=== PATIENT | male | born 1930 | race Caucasian/White ===

== ENCOUNTER 2019-10-12 17:29 | Inpatient (IN) | payer MEDICARE, OTHER ==
--- NOTE | 2019-10-12 18:23 | EDM.PDOC ---
ED HPI GENERAL MEDICAL PROBLEM - General Chief Complaint: Lower Extremity Injury/Pain Stated Complaint: L) hip/leg pain Time Seen by Provider: 10/12/19 17:30 Source of Information: Reports: Patient, Family History Limitations: Reports: No Limitations - History of Present Illness INITIAL COMMENTS - FREE TEXT/NARRATIVE: Patient to the emergency department via privately owned vehicle with his family. The family advises that he fell on September 08, 2019 at home. It is unclear exactly the mechanism of injury or the surrounding specifics of the fall. The daughter has given a few dates of possible falls after September 07 but she is unclear of those and advising that after the fall initially he was sore but did okay and then over the past 3 weeks he started feeling more worse and then over the past 5 days he is felt more worse so the story surrounding the date and time of the fall and possible subsequent injuries is unclear at this point. She does advise that the patient does live alone however the patient's children that live near him takes turns coming in spending time with him during the day but he is at home alone at night. The patient is very hard of hearing however he does appear to be alert and oriented. The patient does complain of pain in the left hip and the left knee. The patient denies any pain in his back however the daughter is advising that when this happened he initially did have some lower back pain. The patient has been ambulating with a walker up until the last 3 days where he is got to where is more painful and he is not wanting to be up on that extremity at all. It is unclear however it is not suspected that the patient hit his head when he fell. And there appears not to have been any loss of consciousness. The patient has no pain in either upper extremity. He denies any pain in his upper back and denies any pain in his mid back or his lower back at this time. The patient has no pain over the right hip and pelvis area no pain over the right lower extremity with palpation. There is no obvious bruising redness or swelling to the back, bilateral hips and pelvis and lower extremities bilaterally. Distal pulse motor sensory is intact upper lower extremities however there is decreased range of motion of the left hip secondary to pain. The patient does have good sensation all the way down to the toes. The patient does have a history of congestive heart failure and does take Coreg for that condition and that is his only medication. He does have a history of hypertension. No other past medical history that significant. The patient has not had any surgeries. The patient's other complaint is he does have increased bilateral lower extremity edema. There is 1 to 2+ pitting edema in both lower extremities equally. There is no calf tenderness bilaterally. This is not a trauma code. 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: Other (see below) (The patient has not been seen or treated for this fall) Left Hip Pain Score (Numeric/FACES): 10 - Related Data Allergies Allergy/AdvReac Type Severity Reaction Status Date / Time No Known Allergies Allergy Verified 10/12/19 18:01 Home Meds: Home Meds Carvedilol [Coreg] 12.5 mg PO DAILY 10/12/19 [History] Past Medical History Cardiovascular History: Reports: Hypertension, Other (See Below) Other Cardiovascular History: CHF Musculoskeletal History: Reports: Other (See Below) Other Musculoskeletal History: Ankylosis spondonosis Social & Family History - Family History Family Medical History: Noncontributory - Tobacco Use Smoking Status *Q: Never Smoker Second Hand Smoke Exposure: No - Caffeine Use Caffeine Use: Reports: None - Recreational Drug Use Recreational Drug Use: No Review of Systems - Review of Systems Review Of Systems: See Below Constitutional: Reports: No Symptoms. Denies: Chills, Fever, Weakness Eyes: Reports: No Symptoms Ears: Reports: No Symptoms Nose: Reports: No Symptoms Mouth/Throat: Reports: No Symptoms Respiratory: Reports: No Symptoms. Denies: Shortness of Breath, Cough Cardiovascular: Reports: Edema. Denies: Chest Pain, Irregular Heart Rate, Lightheadedness, Palpitations, Syncope GI/Abdominal: Reports: No Symptoms. Denies: Abdominal Pain, Nausea, Vomiting Genitourinary: Reports: No Symptoms Musculoskeletal: Reports: No Symptoms, Joint Pain (left hip). Denies: Neck Pain , Back Pain Skin: Reports: No Symptoms. Denies: Pallor, Bruising, Erythema Neurological: Reports: No Symptoms. Denies: Dizziness, Headache, Numbness, Paresthesia Psychiatric: Reports: No Symptoms ED EXAM, GENERAL - Physical Exam Exam: See Below Exam Limited By: No Limitations General Appearance: Alert, WD/WN, No Apparent Distress Ears: Normal External Exam. No: Hearing Grossly Normal Nose: Normal Inspection Throat/Mouth: Normal Inspection, Normal Lips, Normal Voice, No Airway Compromise Head: Atraumatic, Normocephalic Neck: Normal Inspection, Supple, Non-Tender, Full Range of Motion Respiratory/Chest: No Respiratory Distress, Lungs Clear, Normal Breath Sounds Cardiovascular: Normal Peripheral Pulses, Regular Rate, Rhythm, No Murmur Peripheral Pulses: 2+: Radial (L), Radial (R), Posterior Tibial (L), Posterior Tibial (R) GI/Abdominal: Normal Bowel Sounds, Soft, Non-Tender, No Distention Back Exam: Normal Inspection, Full Range of Motion Extremities: Normal Inspection, Normal Capillary Refill, Other (as above) Neurological: Alert, Oriented (to person not place, is hard of hearing, has a hx of dementia and his dgtr advised this is his normal mental status ) Psychiatric: Normal Affect, Normal Mood Skin Exam: Warm, Dry, Intact, Normal Color EKG INTERPRETATION EKG Date: 10/12/19 Time: 18:24 Rhythm: NSR [place]: Normal P-Wave: Present QRS: Normal ST-T: Normal QT: Normal EKG Interpretation Comments: The patient's twelve-lead EKG shows an underlying sinus rhythm with a ventricular rate of 77 there is a first-degree AV block as well as some nonspecific ST changes however there does not appear to be any acute injury or ischemia noted. There is normal R wave progression. Course - Vital Signs Text/Narrative:: 1840 the patient has been evaluated in the emergency department x-ray AP of the pelvis is essentially negative for any acute obvious fracture however there is significant degenerative changes. AP and lateral left knee also shows degenerative changes however no obvious fracture. CT was elected as the patient plain x-rays are negative and complains of severe left hip pain to rule out occult fracture. CT has been completed and results are pending at this point. Chest x-ray is been obtained and shows some slight blurring in the left lower lobe however no obvious pneumonia or congestive changes at this point. The radiology reading is pending. The twelve-lead EKG shows an underlying sinus rhythm with a ventricular rate of 77 there is a first-degree AV block however there is no obvious injury or ischemia noted on the twelve-lead EKG. The patient CBC is stable, general chemistries are also stable as there is some obvious renal insufficiency which is chronic. Urinalysis is pending at this point. Once all the rest of the data is been collected a disposition will be made. [address] came back and does not show any acute fracture/dislocation. See the radiologist dictation for complete details of the CT report. The patient will be admitted for gait failure for physical therapy to evaluate and gait strengthening as well as continued left hip pain and urinary tract infection. The patient will be placed in observation. Last Recorded V/S: Last Vital Signs Temp 35.6 C L 10/12/19 21:01 Pulse 76 10/12/19 21:01 Resp 20 10/12/19 21:01 BP 146/71 H 10/12/19 21:01 Pulse Ox 93 L 10/12/19 21:01 - Orders/Labs/Meds Orders: Active Orders 24 hr Category Date Time Status Patient Status Manage Transfer [TRANSFER] Routine ADT 10/12/19 21:49 Active Patient Status [ADT] Routine ADT 10/12/19 21:54 Active Ambulate [RC] ASDIRECTED Care 10/12/19 21:55 Active Height and Weight [RC] UPON Care 10/12/19 21:55 Active Intake and Output [RC] QSHIFT Care 10/12/19 21:58 Active Oxygen Therapy [RC] PRN Care 10/12/19 21:54 Active Oxygen Therapy [RC] PRN Care 10/12/19 21:56 Active Peripheral IV Care [RC] . DIRECTED Care 10/12/19 19:12 Active Up With Assistance [RC] ASDIRECTED Care 10/12/19 21:55 Active VTE/DVT Education [RC] PER UNIT ROUTINE Care 10/12/19 21:54 Active VTE/DVT Education [RC] PER UNIT ROUTINE Care 10/12/19 21:56 Active Vital Signs [RC] Q4H Care 10/12/19 21:56 Active Vital Signs [RC] Q8H Care 10/12/19 21:54 Active PT Evaluation and Treatment [CONS] Routine Cons 10/12/19 21:55 Active 2 Gram Sodium Diet [DIET] Diet 10/13/19 Breakfast Active Chest 1V Frontal [CR] Stat Exams 10/12/19 17:39 Taken Knee 1V or 2V Lt [CR] Stat Exams 10/12/19 17:39 Taken Pelvis 1V or 2V [CR] Stat Exams 10/12/19 17:39 Taken Pelvis wo Cont [CT] Stat Exams 10/12/19 18:14 Taken CULTURE URINE [RM] Routine Lab 10/12/19 18:59 Received Acetaminophen/HYDROcodone [[place] 325-5 MG] Med 10/12/19 21:55 Active 1 tab PO Q4H PRN Enoxaparin [Lovenox] Med 10/12/19 22:00 Active 40 mg SUBCUT Q24H Sodium Chloride 0.9% [Saline Flush] Med 10/12/19 19:12 Active 10 ml FLUSH ASDIRECTED PRN Sodium Chloride 0.9% [Saline Flush] Med 10/12/19 21:55 Active 10 ml FLUSH ASDIRECTED PRN carvediloL [Coreg] Med 10/13/19 08:00 Active 12.5 mg PO DAILY cefTRIAXone [Rocephin] Med 10/12/19 22:15 Active 1 gm IVPUSH Q24H Peripheral IV Insertion Adult [OM.PC] Routine Oth 10/12/19 19:12 Ordered Saline Lock Insert [OM.PC] Routine Oth 10/12/19 21:55 Ordered Resuscitation Status Routine Resus Stat 10/12/19 21:54 Ordered Medication Orders Hydrocodone Bitart/Acetaminophen ([place] 325-5 Mg) 1 tab PO Q4H PRN PRN Reason: Pain (moderate 4-6) Carvedilol (Coreg) 12.5 mg PO DAILY [facility] Ceftriaxone Sodium (Rocephin) 1 gm IVPUSH Q24H [facility] Enoxaparin Sodium (Lovenox) 40 mg SUBCUT Q24H [facility] Sodium Chloride (Saline Flush) 10 ml FLUSH ASDIRECTED PRN PRN Reason: Keep Vein Open Sodium Chloride (Saline Flush) 10 ml FLUSH ASDIRECTED PRN PRN Reason: Keep Vein Open Labs: Laboratory Tests 10/12/19 10/12/19 10/12/19 Range/Units 17:40 17:40 17:40 WBC 8.2 (5.0-10.0) 10^3/uL RBC 3.82 L (4.50-6.00) 10^6/uL Hgb 10.8 L (14.0-18.0) g/dL Hct 33.4 L (40.0-54.0) % MCV 87.4 (82.0-94.0) fL MCH 28.3 (27.0-32.0) pg MCHC 32.3 L (33.0-38.0) g/dL RDW Coeff of [place] 14.0 (11.0-15.0) % Plt Count 392 (150-400) 10^3/uL Neut % (Auto) 62.9 (35-85) % Lymph % (Auto) 16.5 (10-55) % [place] % (Auto) 9.9 (0-16) % Eos % (Auto) 10.1 H (0-5) % Baso % (Auto) 0.6 (0-3) % Neut # (Auto) 5.16 (1.80-7.00) 10^3/uL Lymph # (Auto) 1.35 (1.00-4.80) 10^3/uL [place] # (Auto) 0.81 H (0.00-0.80) 10^3/uL Eos # (Auto) 0.83 H (0.00-0.45) 10^3/uL Baso # (Auto) 0.05 10^3/uL Sodium 138 (136-145) mEq/L Potassium 4.2 (3.5-5.0) mEq/L Chloride 103 (98-106) mEq/L Carbon Dioxide 24 (21-32) mmol/L BUN 37 H (7-18) mg/dL Creatinine 1.7 H (0.7-1.3) mg/dL Est Cr Clr Drug Dosing 26.13 mL/min Estimated GFR (MDRD) 38 L (>=60) mL/min Glucose 130 H (75-99) mg/dL Calcium 8.4 (8.4-10.1) mg/dL Magnesium 1.9 (1.8-2.4) mg/dL Total Bilirubin 0.4 (0.0-1.0) mg/dL AST 12 L (15-37) U/L ALT 10 L (12-78) U/L Alkaline Phosphatase 169 H (46-116) U/L Troponin I 0.060 (0.00-0.06) ng/mL Total Protein 6.8 (6.4-8.2) g/dL Albumin 3.0 L (3.4-5.0) g/dL Urine Color Light yellow (YELLOW) Urine Appearance Cloudy (CLEAR) Urine pH 5.0 (4.5-8.0) Ur Specific [place] 1.025 H (1.003-1.020) Urine Protein 30 H (NEGATIVE) mg/dL Urine Glucose (UA) Negative (NEGATIVE) mg/dL Urine Ketones Negative (NEGATIVE) mg/dL Urine Occult Blood Moderate H (NEGATIVE) Urine Nitrite Positive H (NEGATIVE) Urine Bilirubin Negative (NEGATIVE) Urine Urobilinogen 0.2 (0.2-1.0) EU/dL Ur Leukocyte Esterase Small H (NEGATIVE) Urine RBC 5-10 H (0-5) /HPF Urine WBC 40-50 H (0-5) /HPF Ur Squamous Epith Cells Few H (NOT SEEN) /HPF Amorphous Sediment Moderate H (NOT SEEN) /HPF Urine Bacteria Moderate H (NOT SEEN) /HPF Urinalysis Comment Meds: Medications Generic Name Dose Route Start Last Admin Trade Name Freq PRN Reason Stop Dose Admin Hydrocodone Bitart/Acetaminophen 1 tab 10/12/19 21:55 [place] 325-5 Mg PO Q4H PRN Pain (moderate 4-6) Carvedilol 12.5 mg 10/13/19 08:00 Coreg PO DAILY [facility] Ceftriaxone Sodium 1 gm 10/12/19 22:15 Rocephin IVPUSH Q24H [facility] Enoxaparin Sodium 40 mg 10/12/19 22:00 Lovenox SUBCUT Q24H [facility] Sodium Chloride 10 ml 10/12/19 19:12 Saline Flush FLUSH ASDIRECTED PRN Keep Vein Open Sodium Chloride 10 ml 10/12/19 21:55 Saline Flush FLUSH ASDIRECTED PRN Keep Vein Open Discontinued Medications Generic Name Dose Route Start Last Admin Trade Name Freq PRN Reason Stop Dose Admin Ceftriaxone Sodium 2 gm 10/12/19 19:12 10/12/19 20:55 Rocephin IVPUSH 10/12/19 19:13 2 gm ONETIME ONE Administration Departure - Departure Time of Disposition: 21:20 Disposition: Refer to Observation Condition: Good Clinical Impression: Urinary tract infection, Left hip pain, Weakness of lower extremity Clinical Impression: (Ruled Out): Failure to gain weight in adult - Discharge Information *PRESCRIPTION DRUG MONITORING PROGRAM REVIEWED*: Not Applicable *COPY OF PRESCRIPTION DRUG MONITORING REPORT IN PATIENT LIZZY: Not Applicable Forms: ED Department Discharge Sepsis Event Note - Evaluation Sepsis Screening Result: No Definite Risk - Focused Exam Vital Signs: Vital Signs Temp Pulse Resp BP Pulse Ox 10/12/19 21:01 35.6 C L 76 20 146/71 H 93 L 10/12/19 17:33 36.5 C 85 20 183/98 H 97 Date Exam was Performed: 10/12/19 Time Exam was Performed: 22:04 - Problem List & Annotations (1) Left hip pain SNOMED Code(s): 10016059 Code(s): M25.552 - PAIN IN LEFT HIP Status: Acute Priority: Medium (2) Urinary tract infection SNOMED Code(s): 44633342 Code(s): N39.0 - URINARY TRACT INFECTION, SITE NOT SPECIFIED Status: Acute Priority: Medium Qualifiers: Urinary tract infection type: site unspecified (3) Weakness of lower extremity SNOMED Code(s): 087464799 Code(s): R29.898 - OTH SYMPTOMS AND SIGNS INVOLVING THE MUSCULOSKELETAL SYSTEM Status: Acute Priority: Medium Qualifiers: Laterality: left Qualified Code(s): R29.898 - Other symptoms and signs involving the musculoskeletal system - Problem List Review Problem List Initiated/Reviewed/Updated: Yes - My Orders Last 24 Hours: My Active Orders 10/12/19 17:39 Chest 1V Frontal [CR] Stat Knee 1V or 2V Lt [CR] Stat Pelvis 1V or 2V [CR] Stat 10/12/19 18:14 Pelvis wo Cont [CT] Stat 10/12/19 18:59 CULTURE URINE [RM] Routine 10/12/19 19:12 Peripheral IV Care [RC] . DIRECTED Sodium Chloride 0.9% [Saline Flush] 10 ml FLUSH ASDIRECTED PRN Peripheral IV Insertion Adult [OM.PC] Routine 10/12/19 21:49 Patient Status Manage Transfer [TRANSFER] Routine 10/12/19 21:54 Patient Status [ADT] Routine Oxygen Therapy [RC] PRN VTE/DVT Education [RC] PER UNIT ROUTINE Vital Signs [RC] Q8H Resuscitation Status Routine 10/12/19 21:55 Ambulate [RC] ASDIRECTED Height and Weight [RC] UPON Up With Assistance [RC] ASDIRECTED PT Evaluation and Treatment [CONS] Routine Acetaminophen/HYDROcodone [[place] 325-5 MG] 1 tab PO Q4H PRN Sodium Chloride 0.9% [Saline Flush] 10 ml FLUSH ASDIRECTED PRN Saline Lock Insert [OM.PC] Routine 10/12/19 21:56 Oxygen Therapy [RC] PRN VTE/DVT Education [RC] PER UNIT ROUTINE Vital Signs [RC] Q4H 10/12/19 21:58 Intake and Output [RC] QSHIFT 10/12/19 22:00 Enoxaparin [Lovenox] 40 mg SUBCUT Q24H 10/12/19 22:15 cefTRIAXone [Rocephin] 1 gm IVPUSH Q24H 10/13/19 08:00 carvediloL [Coreg] 12.5 mg PO DAILY 10/13/19 Breakfast 2 Gram Sodium Diet [DIET] - Assessment/Plan Admission H&P: Please use this note as an admission H&P Last 24 Hours: My Active Orders 10/12/19 17:39 Chest 1V Frontal [CR] Stat Knee 1V or 2V Lt [CR] Stat Pelvis 1V or 2V [CR] Stat 10/12/19 18:14 Pelvis wo Cont [CT] Stat 10/12/19 18:59 CULTURE URINE [RM] Routine 10/12/19 19:12 Peripheral IV Care [RC] . DIRECTED Sodium Chloride 0.9% [Saline Flush] 10 ml FLUSH ASDIRECTED PRN Peripheral IV Insertion Adult [OM.PC] Routine 10/12/19 21:49 Patient Status Manage Transfer [TRANSFER] Routine 10/12/19 21:54 Patient Status [ADT] Routine Oxygen Therapy [RC] PRN VTE/DVT Education [RC] PER UNIT ROUTINE Vital Signs [RC] Q8H Resuscitation Status Routine 10/12/19 21:55 Ambulate [RC] ASDIRECTED Height and Weight [RC] UPON Up With Assistance [RC] ASDIRECTED PT Evaluation and Treatment [CONS] Routine Acetaminophen/HYDROcodone [[place] 325-5 MG] 1 tab PO Q4H PRN Sodium Chloride 0.9% [Saline Flush] 10 ml FLUSH ASDIRECTED PRN Saline Lock Insert [OM.PC] Routine 10/12/19 21:56 Oxygen Therapy [RC] PRN VTE/DVT Education [RC] PER UNIT ROUTINE Vital Signs [RC] Q4H 10/12/19 21:58 Intake and Output [RC] QSHIFT 10/12/19 22:00 Enoxaparin [Lovenox] 40 mg SUBCUT Q24H 10/12/19 22:15 cefTRIAXone [Rocephin] 1 gm IVPUSH Q24H 10/13/19 08:00 carvediloL [Coreg] 12.5 mg PO DAILY 10/13/19 Breakfast 2 Gram Sodium Diet [DIET] Plan: As above
[2019-10-12] MEDS ORDERED: Sodium Chloride 0.9% 10 ML Syringe FLUSH PRN ×2 (19:12→21:55)
[2019-10-12] MEDS ORDERED: cefTRIAXone 2 GM Vial IVPUSH ONE (19:12)
[2019-10-12] MEDS ORDERED: Acetaminophen/HYDROcodone 325-5 MG Tab PO PRN (21:55)
[2019-10-12] MEDS: cefTRIAXone 1 GM Vial IVPUSH SCH (23:07)
[2019-10-12] MEDS: Enoxaparin 40 MG/0.4 ML Syringe SUBCUT SCH (23:50)
[2019-10-13] MEDS ORDERED: Carvedilol 12.5 MG Tab PO SCH (08:00)
--- NOTE | 2019-10-13 09:07 | PCM.PN ---
- General Info Date of Service: 10/13/19 Admission Dx/Problem (Free Text): see H/P - Review of Systems General: Reports: Weakness. Denies: Fever HEENT: Reports: No Symptoms Pulmonary: Reports: No Symptoms. Denies: Shortness of Breath, Cough Cardiovascular: Reports: No Symptoms. Denies: Chest Pain Gastrointestinal: Reports: No Symptoms. Denies: Abdominal Pain, Nausea, Vomiting Musculoskeletal: Reports: No Symptoms. Denies: Neck Pain, Back Pain Skin: Reports: No Symptoms. Denies: Pallor, Bruising Neurological: Reports: No Symptoms, Confusion (hx dementia, normal for pt) Psychiatric: Reports: No Symptoms - Patient Data Vitals - Most Recent: Last Vital Signs Temp 36.2 C 10/13/19 08:00 Pulse 89 10/13/19 08:00 Resp 18 10/13/19 08:00 BP 176/86 H 10/13/19 08:00 Pulse Ox 96 10/13/19 08:00 Weight - Most Recent: 74.843 kg I&O - Last 24 Hours: Intake & Output 10/12/19 10/13/19 10/13/19 22:59 06:59 14:59 Intake Total 100 Output Total 275 Balance -175 Lab Results Last 24 Hours: Laboratory Results - last 24 hr 10/12/19 10/12/19 10/12/19 Range/Units 17:40 17:40 17:40 WBC 8.2 (5.0-10.0) 10^3/uL RBC 3.82 L (4.50-6.00) 10^6/uL Hgb 10.8 L (14.0-18.0) g/dL Hct 33.4 L (40.0-54.0) % MCV 87.4 (82.0-94.0) fL MCH 28.3 (27.0-32.0) pg MCHC 32.3 L (33.0-38.0) g/dL RDW Coeff of [place] 14.0 (11.0-15.0) % Plt Count 392 (150-400) 10^3/uL Neut % (Auto) 62.9 (35-85) % Lymph % (Auto) 16.5 (10-55) % [place] % (Auto) 9.9 (0-16) % Eos % (Auto) 10.1 H (0-5) % Baso % (Auto) 0.6 (0-3) % Neut # (Auto) 5.16 (1.80-7.00) 10^3/uL Lymph # (Auto) 1.35 (1.00-4.80) 10^3/uL [place] # (Auto) 0.81 H (0.00-0.80) 10^3/uL Eos # (Auto) 0.83 H (0.00-0.45) 10^3/uL Baso # (Auto) 0.05 10^3/uL Sodium 138 (136-145) mEq/L Potassium 4.2 (3.5-5.0) mEq/L Chloride 103 (98-106) mEq/L Carbon Dioxide 24 (21-32) mmol/L BUN 37 H (7-18) mg/dL Creatinine 1.7 H (0.7-1.3) mg/dL Est Cr Clr Drug Dosing 26.13 mL/min Estimated GFR (MDRD) 38 L (>=60) mL/min Glucose 130 H (75-99) mg/dL Calcium 8.4 (8.4-10.1) mg/dL Magnesium 1.9 (1.8-2.4) mg/dL Total Bilirubin 0.4 (0.0-1.0) mg/dL AST 12 L (15-37) U/L ALT 10 L (12-78) U/L Alkaline Phosphatase 169 H (46-116) U/L Troponin I 0.060 (0.00-0.06) ng/mL Total Protein 6.8 (6.4-8.2) g/dL Albumin 3.0 L (3.4-5.0) g/dL Urine Color Light yellow (YELLOW) Urine Appearance Cloudy (CLEAR) Urine pH 5.0 (4.5-8.0) Ur Specific [place] 1.025 H (1.003-1.020) Urine Protein 30 H (NEGATIVE) mg/dL Urine Glucose (UA) Negative (NEGATIVE) mg/dL Urine Ketones Negative (NEGATIVE) mg/dL Urine Occult Blood Moderate H (NEGATIVE) Urine Nitrite Positive H (NEGATIVE) Urine Bilirubin Negative (NEGATIVE) Urine Urobilinogen 0.2 (0.2-1.0) EU/dL Ur Leukocyte Esterase Small H (NEGATIVE) Urine RBC 5-10 H (0-5) /HPF Urine WBC 40-50 H (0-5) /HPF Ur Squamous Epith Cells Few H (NOT SEEN) /HPF Amorphous Sediment Moderate H (NOT SEEN) /HPF Urine Bacteria Moderate H (NOT SEEN) /HPF Urinalysis Comment Med Orders - Current: Current Medications Hydrocodone Bitart/Acetaminophen ([place] 325-5 Mg) 1 tab PO Q4H PRN PRN Reason: Pain (moderate 4-6) Carvedilol (Coreg) 12.5 mg PO DAILY [facility] Ceftriaxone Sodium (Rocephin) 1 gm IVPUSH Q24H [facility] Last Admin: 10/12/19 23:07 Dose: Not Given Enoxaparin Sodium (Lovenox) 40 mg SUBCUT Q24H [facility] Last Admin: 10/12/19 23:50 Dose: 40 mg Sodium Chloride (Saline Flush) 10 ml FLUSH ASDIRECTED PRN PRN Reason: Keep Vein Open Sodium Chloride (Saline Flush) 10 ml FLUSH ASDIRECTED PRN PRN Reason: Keep Vein Open Discontinued Medications Ceftriaxone Sodium (Rocephin) 2 gm IVPUSH ONETIME ONE Stop: 10/12/19 19:13 Last Admin: 10/12/19 20:55 Dose: 2 gm - Exam Quality Assessment: No: Supplemental Oxygen General: Alert, Oriented (to person, not time or place), Cooperative, No Acute Distress Neck: Supple, Trachea Midline Lungs: Clear to Auscultation, Normal Respiratory Effort Cardiovascular: Regular Rate, Regular Rhythm GI/Abdominal Exam: Normal Bowel Sounds, Soft, Non-Tender Back Exam: Normal Inspection, Full Range of Motion Extremities: Normal Inspection, No Pedal Edema, Normal Capillary Refill. No: Non-Tender (left hip pain) Peripheral Pulses: 2+: Radial (L), Radial (R), Posterior Tibial (L), Posterior Tibial (R) Skin: Warm, Dry, Intact Sepsis Event Note - Evaluation Sepsis Screening Result: No Definite Risk - Focused Exam Vital Signs: Vital Signs Temp Pulse Resp BP Pulse Ox 10/13/19 08:00 36.2 C 89 18 176/86 H 96 10/12/19 23:52 35.5 C L 71 18 131/66 95 10/12/19 21:01 35.6 C L 76 20 146/71 H 93 L Date Exam was Performed: 10/13/19 Time Exam was Performed: 08:56 - Problem List & Annotations (1) Left hip pain SNOMED Code(s): 41825667 Code(s): M25.552 - PAIN IN LEFT HIP Status: Acute Priority: Medium Current Visit: No (2) Urinary tract infection SNOMED Code(s): 31353248 Code(s): N39.0 - URINARY TRACT INFECTION, SITE NOT SPECIFIED Status: Acute Priority: Medium Current Visit: No Qualifiers: Urinary tract infection type: site unspecified (3) Weakness of lower extremity SNOMED Code(s): 153615166 Code(s): R29.898 - OTH SYMPTOMS AND SIGNS INVOLVING THE MUSCULOSKELETAL SYSTEM Status: Acute Priority: Medium Current Visit: No Qualifiers: Laterality: left Qualified Code(s): R29.898 - Other symptoms and signs involving the musculoskeletal system - Problem List Review Problem List Initiated/Reviewed/Updated: Yes - My Orders Last 24 Hours: My Active Orders 10/12/19 17:39 Chest 1V Frontal [CR] Stat Knee 1V or 2V Lt [CR] Stat Pelvis 1V or 2V [CR] Stat 10/12/19 18:14 Pelvis wo Cont [CT] Stat 10/12/19 18:59 CULTURE URINE [RM] Routine 10/12/19 19:12 Peripheral IV Care [RC] . DIRECTED Sodium Chloride 0.9% [Saline Flush] 10 ml FLUSH ASDIRECTED PRN 10/12/19 21:54 Patient Status [ADT] Routine Oxygen Therapy [RC] .PRN VTE/DVT Education [RC] PER UNIT ROUTINE Vital Signs [RC] 0000,[id number],1600 Resuscitation Status Routine 10/12/19 21:55 Ambulate [RC] ASDIRECTED Height and Weight [RC] .PRN Up With Assistance [RC] ASDIRECTED PT Evaluation and Treatment [CONS] Routine Acetaminophen/HYDROcodone [[place] 325-5 MG] 1 tab PO Q4H PRN Sodium Chloride 0.9% [Saline Flush] 10 ml FLUSH ASDIRECTED PRN Saline Lock Insert [OM.PC] Routine 10/12/19 21:56 Vital Signs [RC] Q4H 10/12/19 21:58 Intake and Output [RC] 0600,1800 10/12/19 22:00 Enoxaparin [Lovenox] 40 mg SUBCUT Q24H 04/10/20 22:15 cefTRIAXone [Rocephin] 1 gm IVPUSH Q24H 10/13/19 08:00 carvediloL [Coreg] 12.5 mg PO DAILY 10/13/19 Breakfast 2 Gram Sodium Diet [DIET] - Plan Plan:: pt has decrease in pain, does not want to stand on his left leg still, will continue current treatment plan and work with ROM of the lower ext and try ambulation, will continue IV antibx for his UTI, changes to tx plan will be as needed
[2019-10-13] MEDS: cefTRIAXone 1 GM Vial IVPUSH SCH (22:00)
[2019-10-13] MEDS: Enoxaparin 40 MG/0.4 ML Syringe SUBCUT SCH (22:02)
[2019-10-14] MEDS ORDERED: Furosemide 40 MG/4 ML VIAL IVPUSH ONE (06:57)
--- NOTE | 2019-10-14 07:13 | PCM.PN ---
- General Info Date of Service: 10/14/19 Admission Dx/Problem (Free Text): see H/P - Review of Systems General: Reports: Weakness. Denies: Fever HEENT: Reports: No Symptoms Pulmonary: Reports: No Symptoms. Denies: Shortness of Breath, Cough Cardiovascular: Reports: No Symptoms, Edema. Denies: Chest Pain Gastrointestinal: Denies: Abdominal Pain, Diarrhea, Nausea Musculoskeletal: Reports: No Symptoms, Joint Pain (still c/o left hip pain). Denies: Neck Pain Skin: Reports: No Symptoms. Denies: Bruising, Rash Neurological: Reports: Confusion, Weakness, Gait Disturbance. Denies: Headache , Numbness, Tingling Psychiatric: Reports: No Symptoms - Patient Data Vitals - Most Recent: Last Vital Signs Temp 36.7 C 10/13/19 23:09 Pulse 82 10/13/19 23:09 Resp 20 10/13/19 23:09 BP 157/75 H 10/13/19 23:09 Pulse Ox 93 L 10/13/19 23:09 Weight - Most Recent: 74.843 kg I&O - Last 24 Hours: Intake & Output 10/13/19 10/13/19 10/14/19 14:59 22:59 06:59 Intake Total 950 125 Output Total 950 275 Balance 0 -150 Kailash Results Last 24 Hours: Microbiology 10/12/19 18:59 Urine Culture - Preliminary Urine, Catheterized Gram Positive Cocci Med Orders - Current: Current Medications Hydrocodone Bitart/Acetaminophen ([place] 325-5 Mg) 1 tab PO Q4H PRN PRN Reason: Pain (moderate 4-6) Carvedilol (Coreg) 0 mg PO DAILY [facility] Ceftriaxone Sodium (Rocephin) 1 gm IVPUSH Q24H [facility] Last Admin: 10/13/19 22:00 Dose: 1 gm Enoxaparin Sodium (Lovenox) 40 mg SUBCUT Q24H [facility] Last Admin: 10/13/19 22:02 Dose: 40 mg Furosemide (Lasix) 40 mg IVPUSH ONETIME ONE Stop: 10/14/19 06:58 Sodium Chloride (Saline Flush) 10 ml FLUSH ASDIRECTED PRN PRN Reason: Keep Vein Open Sodium Chloride (Saline Flush) 10 ml FLUSH ASDIRECTED PRN PRN Reason: Keep Vein Open Discontinued Medications Carvedilol (Coreg) 12.5 mg PO DAILY [facility] Last Admin: 10/13/19 11:55 Dose: 12.5 mg Ceftriaxone Sodium (Rocephin) 2 gm IVPUSH ONETIME ONE Stop: 10/12/19 19:13 Last Admin: 10/12/19 20:55 Dose: 2 gm - Exam General: Alert, Cooperative. No: Oriented (confused to time and place) Neck: Supple Lungs: Clear to Auscultation, Normal Respiratory Effort Cardiovascular: Regular Rate, Regular Rhythm GI/Abdominal Exam: Soft, Non-Tender Back Exam: Normal Inspection, Full Range of Motion Extremities: Normal Inspection, Normal Capillary Refill. No: Non-Tender (pain in left hip), Redness Peripheral Pulses: 2+: Radial (L), Radial (R), Posterior Tibial (L), Posterior Tibial (R) Skin: Warm, Dry, Intact Neurological: No New Focal Deficit Psy/Mental Status: Alert, Normal Affect, Normal Mood Sepsis Event Note - Evaluation Sepsis Screening Result: No Definite Risk - Focused Exam Vital Signs: Vital Signs Temp Pulse Resp BP Pulse Ox 10/13/19 23:09 36.7 C 82 20 157/75 H 93 L Date Exam was Performed: 10/14/19 Time Exam was Performed: 06:58 - Problem List & Annotations (1) Left hip pain SNOMED Code(s): 35337190 Code(s): M25.552 - PAIN IN LEFT HIP Status: Acute Priority: Medium Current Visit: No (2) Urinary tract infection SNOMED Code(s): 36690843 Code(s): N39.0 - URINARY TRACT INFECTION, SITE NOT SPECIFIED Status: Acute Priority: Medium Current Visit: No Qualifiers: Urinary tract infection type: site unspecified (3) Weakness of lower extremity SNOMED Code(s): 270069602 Code(s): R29.898 - OTH SYMPTOMS AND SIGNS INVOLVING THE MUSCULOSKELETAL SYSTEM Status: Acute Priority: Medium Current Visit: No Qualifiers: Laterality: left Qualified Code(s): R29.898 - Other symptoms and signs involving the musculoskeletal system - Problem List Review Problem List Initiated/Reviewed/Updated: Yes - My Orders Last 24 Hours: My Active Orders 10/13/19 Breakfast 2 Gram Sodium Diet [DIET] 10/14/19 06:57 Furosemide [Lasix] 40 mg IVPUSH ONETIME ONE 10/14/19 08:00 carvediloL [Coreg] 0 mg PO DAILY - Plan Plan:: pt has decrease in pain, does not want to stand on his left leg still, will continue current treatment plan and work with ROM of the lower ext and try ambulation, will continue IV antibx for his UTI, changes to tx plan will be as needed 10/14/2019 0700 pt's edema did appear to be improved yesterday, is worse today, no cp or sob, will give one dose of IV lasix, urine cx is not significant, the pt had c/o some nausea as well, has been having a BM every day, no black or tarry stools, no blood in stools, no vomiting, will repeat labs in am and have pt assess his gait and strength for further tx from that stand point and will consult case management for discharge planning for possible help in the home as he lives alone and family does help out during the day but is alone at night. the opt still c/o left hip pain.
[2019-10-14] MEDS: Carvedilol 12.5 MG Tab **OWN MED PO SCH (08:01)
[2019-10-14] MEDS: cefTRIAXone 1 GM Vial IVPUSH SCH (21:31)
[2019-10-14] MEDS: Enoxaparin 40 MG/0.4 ML Syringe SUBCUT SCH (21:31)
[2019-10-15] MEDS: Carvedilol 12.5 MG Tab **OWN MED PO SCH (07:32)
[2019-10-15] MEDS: Carvedilol 6.25 MG Tab PO SCH (09:24)
--- NOTE | 2019-10-15 09:28 | PN ---
DATE: S: Mr. Conklin was admitted by [facility] when over the weekend for a fall in his garage a few steps. He had negative imaging for any fractures of his pelvis, hips, knee, or chest. He was admitted for observation for strengthening. They thought he may have had a UTI. Final culture I believe is still pending. On admit, his lab work was reviewed and appears stable. Urine was positive and the patient feels better since admission. He has not been up and ambulating on a whole lot as of yet. He lives at home alone in his own [place], so he is at-risk male given his age and comorbidities. O: VITAL SIGNS: Other than some borderline blood pressures have been fine. GENERAL: He is pleasant and cooperative, sitting in bed. HEENT: Grossly benign. NECK: His neck veins are nondistended. LUNGS: Clear. CARDIAC: Tones are regular. ABDOMEN: Nontender. EXTREMITIES: No peripheral edema seen. ASSESSMENT: 1. FALL. 2. WEAKNESS. 3. URINARY TRACT INFECTION. P: We will have PT work with him for the next day or two. He can go to acute due to his acute urinary tract infection, need for IV antibiotics, and strengthening at this point. ROHINI/WILLIAM /[id number]
[2019-10-15] MEDS: Tamsulosin 0.4 MG Cap.ER PO SCH (20:38)
[2019-10-15] MEDS: cefTRIAXone 1 GM Vial IVPUSH SCH (23:14)
[2019-10-15] MEDS: Enoxaparin 40 MG/0.4 ML Syringe SUBCUT SCH (23:15)
[2019-10-16] MEDS: Carvedilol 6.25 MG Tab PO SCH (07:36)
[2019-10-16] MEDS: amLODIPine 2.5 MG Tab PO SCH (10:12)
--- NOTE | 2019-10-16 11:01 | PN ---
DATE: S: Mr. Conklin continues to do better. He has gotten much stronger with the help of physical therapy. His vitals have remained stable, and he has been afebrile. He is hypertensive with his systolics running anywhere from the 140s to 160s. Saturating fine on room air. He denies any complaints of pain. I did look at his urine micro, and it shows Staphylococcus epidermidis. Given his UA on admit and his presentation consistent with UTI, and the fact that this was a questionable specimen, I am going to keep him on IV Rocephin for now until discharge. O: GENERAL: On exam, he is very pleasant, cooperative, in no distress today. HEENT: Grossly benign. NECK: His neck is supple. LUNGS: Clear. CARDIAC: Tones appear regular. ABDOMEN: Soft. EXTREMITIES: Without edema. ASSESSMENT: 1. FALL WITH BACK, HIP, AND LEG CONTUSIONS. 2. WEAKNESS, IMPROVING. 3. QUESTIONABLE URINARY TRACT INFECTION. P: He will continue with physical therapy. Clinically, he looks much better, and we are waiting on care providers at his home via family members to allow for him to safely be discharged as he is an at-risk male. One of his daughters has been contacted, and they are planning for him to go to a [place] [facility] in the near-future. Until that time, I think he needs to be here. His urine culture shows Staphylococcus epidermidis and likely does not need treatment. Given his urine which was quite positive, including nitrite positive, I am going to leave him on Rocephin during his stay. ROHINI/WILLIAM /[id number]
--- NOTE | 2019-10-16 12:59 | PN ---
DATE: 10/16/2019 ADDENDUM: Mr. Conklin's blood pressures have been running slightly elevated. I am going to put him on a low dose of Norvasc, and we will titrate that. During his stay this week, he was having some issues with urinary frequency and dribbling. We did start him on Flomax as well yesterday. ROHINI/WILLIAM /[id number]
[2019-10-16] MEDS: Tamsulosin 0.4 MG Cap.ER PO SCH (19:40)
[2019-10-16] MEDS: Enoxaparin 40 MG/0.4 ML Syringe SUBCUT SCH (22:25)
[2019-10-16] MEDS: cefTRIAXone 1 GM Vial IVPUSH SCH (22:26)
[2019-10-17] MEDS: Carvedilol 6.25 MG Tab PO SCH (07:52)
[2019-10-17] MEDS: amLODIPine 2.5 MG Tab PO SCH ×2 (07:52→10:48)
--- NOTE | 2019-10-17 11:07 | PN ---
DATE: S: Mr. Conklin continues to improve. PT working with him and noticing improvement in strength and walking ability. He has remained afebrile. Blood pressures continue to run high. We did start a low-dose Norvasc yesterday and I will increase that to 5 mg from 2.5. I also started him on Flomax for his prostatism. O: GENERAL: He is pleasant, cooperative, and in no distress today. HEENT: Benign. NECK: Supple. Veins are flat. LUNGS: Sounds are slightly diminished, maybe some fine basilar crackles. CARDIAC: Tones are regular. ABDOMEN: Soft. EXTREMITIES: He has no peripheral edema. ASSESSMENT: 1. FALL WITH MULTIPLE CONTUSIONS. 2. WEAKNESS, IMPROVING. 3. BPH. 4. HYPERTENSION. 5. URINARY TRACT INFECTION. P: We will increase Norvasc to 5. Continue with PT. Plan I believe is for him to go home on Tuesday. We will titrate his blood pressures in the meantime. ROHINI/WILLIAM /[id number]
[2019-10-17] MEDS: Tamsulosin 0.4 MG Cap.ER PO SCH (19:14)
[2019-10-17] MEDS: Enoxaparin 40 MG/0.4 ML Syringe SUBCUT SCH (19:15)
[2019-10-17] MEDS ORDERED: cefTRIAXone 1 GM Vial IVPUSH SCH (20:00)
[2019-10-18] MEDS: Carvedilol 6.25 MG Tab PO SCH (07:12)
[2019-10-18] MEDS: amLODIPine 2.5 MG Tab PO SCH (07:12)
--- NOTE | 2019-10-18 09:54 | PN ---
DATE: S: Cory continues to do well. He is walking better, feels he is close to being able to go home. I believe family has arranged for 24-hour care with the hopes of a [place] [facility] in the near future. We put him on a low-dose Norvasc as his blood pressures were high yesterday and increased that to 5. He is really doing better in that regard. I did review his admit imaging which showed a little bit of bilateral pleural effusions. Did a BNP on him yesterday which was elevated into the 30,000's. He is not requiring any supplemental O2 and does not have much of a peripheral edema. We do have an echo pending. O: GENERAL: On exam today, he is pleasant and cooperative in his chair with no distress. HEENT: Grossly benign. NECK: Supple. Veins are flat. LUNGS: His lung sounds are diminished in the bases, but otherwise relatively clear. CARDIAC: Tones are regular. ABDOMEN: Soft. No peripheral edema is seen. ASSESSMENT: 1. FALL WITH MULTIPLE CONTUSIONS. 2. WEAKNESS, IMPROVING. 3. BPH. 4. HYPERTENSION. 5. CONGESTIVE HEART FAILURE PER CHEST X-RAY AND BNP. P: We will start him on a low-dose oral Lasix 20 mg a day. He is already on Coreg and now Norvasc. We will continue to follow this as an outpatient or have his primary do as such. His blood pressures are now well controlled. He will finish his IV Rocephin today and ended up only growing out Staphylococcus saprophyticus. ROHINI/WILLIAM /[id number]
[2019-10-18] MEDS: Furosemide 20 MG Tab PO SCH (12:30)
[2019-10-18] MEDS: Tamsulosin 0.4 MG Cap.ER PO SCH (19:54)
[2019-10-18] MEDS: Enoxaparin 40 MG/0.4 ML Syringe SUBCUT SCH (19:54)
[2019-10-19] MEDS: amLODIPine 2.5 MG Tab PO SCH (07:24)
[2019-10-19] MEDS: Carvedilol 6.25 MG Tab PO SCH (07:25)
[2019-10-19] MEDS: Furosemide 20 MG Tab PO SCH (07:25)
[2019-10-19] MEDS ORDERED: Nystatin Crm 30 GM Tube TOP SCH (10:45)
--- NOTE | 2019-10-19 15:28 | DISCH ---
ADMISSION DIAGNOSES: 1. Fall with contusions. 2. Weakness. 3. Urinary tract infection. DISCHARGE DIAGNOSIS: 1. FALL WITH MULTIPLE CONTUSIONS. 2. HYPERTENSION. 3. CHRONIC SYSTOLIC CONGESTIVE HEART FAILURE. 4. BPH. HISTORY: The patient was admitted on admit day after being brought to our emergency room for a fall at home where he was found by a neighbor in his garage steps. He denied any head trauma. Workup revealed no signs of any fracture or intracerebral injury. He was thought to have a UTI on admit, was started on IV Rocephin, and put in the hospital for observation for his weakness. He was given IV Rocephin and monitored. HOSPITAL COURSE: During his stay, urine culture came back showing Staphylococcus saprophyticus. He was ultimately treated with 7 days of IV Rocephin. Only metabolic abnormality during his stay was his blood pressures were running in the 140s to 160 systolic, initiated on Norvasc. He is on Coreg daily for his CHF. On admit, his chest x-ray showed small bilateral pleural effusions. I did a BNP on him, it was 30,000. Started him on a low dose of oral Lasix, and he will need monitoring of this. Repeat echo was done, I believe his EF was around 45%. For the most part, he has done well during his hospital stay. He has had physical therapy with excellent improvement in his strength and ability to ambulate. His family, I believe, plan on long-term half-way placement. [facility], [facility]. At this time, his blood pressures are improved with the addition of Norvasc. He will need to follow up panel-8, chest x-ray, and monitoring for his CHF. I believe Dr. Kelsy Massey in [place] is his primary provider, and we will arrange a 2-week followup visit in that regard. COMPLICATIONS: During stay were none. CONSULTATIONS: PT. DISPOSITION: Discharged home under the 24-hour care of family at this time. ROHINI/WILLIAM /[id number]
--- NOTE | 2019-10-22 08:50 | DISCH ---
ADDENDUM: The patient's final urine culture report showed Staphylococcus epidermidis. He will not be sent home on any further antibiotics. Prior progress note noted the patient grew out Staphylococcus saprophyticus. This was an error. His final culture report was Staphylococcus epidermidis. ROHINI/WILLIAM /[id number]
== END 2019-10-19 13:45 | disposition home or self-care (01) | DRG 690 ==
LOC: CC.ED 17:29 → CC.MS 21:49 → UNDOADMOB 22:46 → OBSVTOIN 10-15 09:07
PROVIDERS: ADMIT Nurse Practitioner; ATTEND Family Medicine
DX: N39.0 Urinary tract infection, site not specified (principal); I13.0 Hypertensive heart and chronic kidney disease with heart failure and stage 1 through stage 4 chronic kidney disease, or unspecified chronic kidney disease; I50.22 Chronic systolic (congestive) heart failure; R26.9 Unspecified abnormalities of gait and mobility; M25.552 Pain in left hip; N40.0 Benign prostatic hyperplasia without lower urinary tract symptoms; B95.7 Other staphylococcus as the cause of diseases classified elsewhere; R29.898 Other symptoms and signs involving the musculoskeletal system; N18.9 Chronic kidney disease, unspecified; W19.XXXA Unspecified fall, initial encounter; S20.229A Contusion of unspecified back wall of thorax, initial encounter; S70.00XA Contusion of unspecified hip, initial encounter; I11.0 Hypertensive heart disease with heart failure; I50.9 Heart failure, unspecified; Z79.899 Other long term (current) drug therapy; R11.0 Nausea; S80.10XA Contusion of unspecified lower leg, initial encounter
CPT/HCPCS: 36415; 71045; 72170; 72192; 73560-LT; 80048; 80053; 81001; 83735; 83880; 84484; 85025; 87086; 87088; 87186; 93005; 93010; 93306; 96372; 96374; 96375; 96376; 97110-GP; 97161-GP; 97530-GP; 99220; 99225; 99284-25; A9270-GY; G0378; J0696; J1650; J1940

== ENCOUNTER 2019-11-22 10:06 | Inpatient (IN) | payer OTHER ==
[2019-11-23] MEDS ORDERED: Morphine Oral Concentrate 20 MG/ML 30 ML Bottle SL SCH (20:00)
[2019-11-25] MEDS ORDERED: diphenhydrAMINE 25 MG Cap ONE (12:32)
[2019-11-26] MEDS ORDERED: diphenhydrAMINE 25 MG Cap ONE (02:46)
[2019-11-27] MEDS ORDERED: LORazepam Conc Solution 2 MG/ML 30 ML Bottle PO SCH
== END 2019-11-28 09:45 | DRG 951 ==
LOC: CC.MS 11:16
PROVIDERS: ADMIT Family Medicine; ATTEND Family Medicine
DX: Z51.5 Encounter for palliative care (principal); I13.0 Hypertensive heart and chronic kidney disease with heart failure and stage 1 through stage 4 chronic kidney disease, or unspecified chronic kidney disease; I50.30 Unspecified diastolic (congestive) heart failure; F03.91 Unspecified dementia, unspecified severity, with behavioral disturbance; D64.9 Anemia, unspecified; E78.5 Hyperlipidemia, unspecified; K21.9 Gastro-esophageal reflux disease without esophagitis; R35.1 Nocturia; N18.3 Chronic kidney disease, stage 3 (moderate); I48.0 Paroxysmal atrial fibrillation; L40.50 Arthropathic psoriasis, unspecified; R97.21 Rising PSA following treatment for malignant neoplasm of prostate; H40.1190 Primary open-angle glaucoma, unspecified eye, stage unspecified; F32.9 Major depressive disorder, single episode, unspecified; M1A.0711 Idiopathic chronic gout, right ankle and foot, with tophus (tophi); Z86.73 Personal history of transient ischemic attack (TIA), and cerebral infarction without residual deficits; Z91.81 History of falling; Z87.891 Personal history of nicotine dependence; Z79.82 Long term (current) use of aspirin; Z85.46 Personal history of malignant neoplasm of prostate; Z20.828 Contact with and (suspected) exposure to other viral communicable diseases
CPT/HCPCS: A9270-GY; U0002